=== PATIENT | male | born 1990 | race Caucasian/White ===

== ENCOUNTER 2016-07-01 23:23 | Emergency (ER) | payer OTHER ==
[~2016-07-01] VITALS: Ht 172.7 cm; Wt 80.6 kg
[~2016-07-01 23:23] MED LIST: AZITHROMYCIN500 M1 PO; CENTRUM SILVER1 EAC3 PO; EXCEDRIN MIGRA1 EAC3 PO; FLUOXETINE HCL20 MG PO; METAXALONE800 MG PO; PREDNISONE20 MG PO; PROAIR HFA8.5 GM IH; PROZAC10 MG PO
[2016-07-02 00:39] LABS: EOSINOPHIL (%) 1.7 % (0-5); EOSINOPHIL COUNT 0.1 K/uL (0-0.3); HEMATOCRIT 40.7 % (38.0-50.0); LYMPHOCYTE COUNT 1.9 K/uL (1.0-2.8); MCH 30.4 PG (29.0-34.0); MCHC 36.1 G/DL (30.0-36.0); MCV 84.1 FL (86-99); MEAN PLAT.VOLUME 9.1 uM^3 (9.0-12.4); MONOCYTE (%) 9.6 % (3-12); MONOCYTE COUNT 0.6 K/uL (0-0.8); NEUTROPHIL (%) 55.1 % (45-76); NEUTROPHIL COUNT 3.2 K/uL (1.8-6.4); PLATELET COUNT 306 K/uL (156-360); RBC DIS.WIDTH-CV 12.3 % (11.8-14.6); RBC DIS.WIDTH-SD 36.7 % (39-53); RED BLOOD COUNT 4.84 M/uL (4.00-5.50); WHITE BLOOD COUNT 5.8 K/uL (4.1-10.2)
[2016-07-02 00:47] LABS: CHLORIDE 106 mEq/L (99-109); SODIUM 142 mEq/L (136-147)
[2016-07-02 00:50] LABS: GLUCOSE 98 mg/dL (70-99)
[2016-07-02 00:51] LABS: ANION GAP 10 MEQ/L (2-14)
[2016-07-02 00:52] LABS: TOTAL BILIRUBIN 0.5 mg/dL (0.0-1.0)
[2016-07-02 00:53] LABS: ALKALINE PHOSPHATASE 45 IU/L (3-129); GFR ESTIMATE (CALCULATED) > 59 mL/min/
[2016-07-02 00:55] LABS: UREA NITROGEN (BUN) 11 mg/dL (9-23)
[2016-07-02] MEDS ORDERED: MEDROL DOSEPAK4 MG PO (01:47)
[2016-07-02 02:00] VITALS: BP 153/89
== END 2016-07-02 02:19 | disposition home or self-care (01) ==
LOC: EXP 23:23 → EME 23:23 → EXP 07-02 02:19
PROVIDERS: Physician Assistant
DX: T42.6X5A Adverse effect of other antiepileptic and sedative-hypnotic drugs, initial encounter (principal); J45.909 Unspecified asthma, uncomplicated; F17.200 Nicotine dependence, unspecified, uncomplicated
CPT/HCPCS: 80053; 80175 90; 85025; 99281; 99284; J1200; J2930; J7030

== ENCOUNTER 2017-03-19 01:59 | Emergency (ER) | payer OTHER ==
[~2017-03-19] VITALS: Ht 172.7 cm; Wt 79.6 kg
[~2017-03-19 01:59] MED LIST changes: +MEDROL DOSEPAK4 MG PO
[2017-03-19] MEDS ORDERED: ZOFRAN4 MG PO (04:15)
[2017-03-19 04:19] VITALS: BP 114/67
== END 2017-03-19 04:20 | disposition home or self-care (01) ==
LOC: EME 01:59
DX: R11.2 Nausea with vomiting, unspecified (principal); R19.7 Diarrhea, unspecified; R42 Dizziness and giddiness; T50.905A Adverse effect of unspecified drugs, medicaments and biological substances, initial encounter; J45.909 Unspecified asthma, uncomplicated; Z90.49 Acquired absence of other specified parts of digestive tract; Z72.0 Tobacco use
CPT/HCPCS: 99281; 99283

== ENCOUNTER 2017-04-07 12:35 | Emergency (ER) | payer OTHER ==
[~2017-04-07] VITALS: Ht 172.7 cm; Wt 79.3 kg
[~2017-04-07 12:35] MED LIST changes: +ZOFRAN4 MG PO
[2017-04-07] MEDS ORDERED: MEDROL DOSEPAK4 MG PO (15:07)
[2017-04-07 15:18] VITALS: BP 113/68
== END 2017-04-07 15:20 | disposition home or self-care (01) ==
LOC: EME 12:35
DX: R06.02 Shortness of breath (principal); R00.2 Palpitations; R11.0 Nausea; L29.9 Pruritus, unspecified; T45.2X5A Adverse effect of vitamins, initial encounter; J45.909 Unspecified asthma, uncomplicated; F90.9 Attention-deficit hyperactivity disorder, unspecified type; F31.9 Bipolar disorder, unspecified; F32.9 Major depressive disorder, single episode, unspecified; K21.9 Gastro-esophageal reflux disease without esophagitis; F41.9 Anxiety disorder, unspecified; Z72.0 Tobacco use
CPT/HCPCS: 99281; 99284

== ENCOUNTER 2017-04-09 06:03 | Emergency (ER) | payer OTHER ==
[~2017-04-09] VITALS: Ht 172.7 cm; Wt 79.2 kg
[2017-04-09 06:51] LABS: HEMATOCRIT 39.9 % (38.0-50.0); MCH 30.9 PG (29.0-34.0); MCHC 36.3 G/DL (30.0-36.0); MCV 84.9 FL (86-99); MEAN PLAT.VOLUME 8.8 uM^3 (9.0-12.4); PLATELET COUNT 259 K/uL (156-360); RBC DIS.WIDTH-CV 11.7 % (11.8-14.6); RBC DIS.WIDTH-SD 35.8 % (39-53); WHITE BLOOD COUNT 6.4 K/uL (4.1-10.2)
[2017-04-09 06:59] LABS: CHLORIDE 103 mEq/L (99-109)
[2017-04-09 07:00] LABS: POTASSIUM 3.6 mEq/L (3.7-5.4); SODIUM 137 mEq/L (136-147)
[2017-04-09 07:02] LABS: GLUCOSE 95 mg/dL (70-99)
[2017-04-09 07:03] LABS: ANION GAP 7 MEQ/L (2-14)
[2017-04-09 07:05] LABS: ALKALINE PHOSPHATASE 46 IU/L (3-129); SERUM ETHYL ALCOHOL < 10 mg/dL
[2017-04-09 07:06] LABS: GFR ESTIMATE (CALCULATED) > 59 mL/min/
[2017-04-09 07:07] LABS: UREA NITROGEN (BUN) 10 mg/dL (9-23)
[2017-04-09 07:09] LABS: CREATINE KINASE 62 IU/L (1-294); TOTAL CK 62 IU/L (1-294)
[2017-04-09 07:14] LABS: CK-MB 0.6 ng/mL (0.0-4.9)
[2017-04-09 07:51] LABS: COCAINE NEGATIVE (150 ng/mL); PHENCYCLIDINE NEGATIVE (25 ng/mL); THC CANNABINOIDS NEGATIVE (50 ng/mL)
[2017-04-09 07:52] LABS: AMPHETAMINE NEGATIVE (500 ng/mL); BARBITURATES NEGATIVE (200 ng/mL); BENZODIAZEPINES NEGATIVE (150 ng/mL); INTERNAL CONTROLS VALID? YES; METHADONE NEGATIVE (200 ng/mL); METHAMPHETAMINE NEGATIVE (500 ng/mL); OPIATES (MORPHINE) NEGATIVE (100 ng/mL); OXYCODONE NEGATIVE (100 ng/mL); PROPOXYPHENE NEGATIVE (300 ng/mL); TRICYCLIC ANTIDEPRESSANTS NEGATIVE (300 ng/mL)
[2017-04-09 08:38] VITALS: BP 122/75
== END 2017-04-09 08:45 | disposition home or self-care (01) ==
LOC: EME 06:03
PROVIDERS: Emergency Medicine
DX: R44.3 Hallucinations, unspecified (principal); L29.9 Pruritus, unspecified; R11.0 Nausea; R68.83 Chills (without fever); F31.9 Bipolar disorder, unspecified; J45.909 Unspecified asthma, uncomplicated; K21.9 Gastro-esophageal reflux disease without esophagitis; F90.9 Attention-deficit hyperactivity disorder, unspecified type; Z79.52 Long term (current) use of systemic steroids; Z90.49 Acquired absence of other specified parts of digestive tract; Z72.0 Tobacco use; Z91.041 Radiographic dye allergy status
CPT/HCPCS: 80053; 82550; 82553; 85027; 99281; 99284; G0480

== ENCOUNTER 2017-06-25 14:21 | Emergency (ER) | payer OTHER ==
[~2017-06-25] VITALS: Ht 172.7 cm; Wt 74.4 kg
[2017-06-25 16:13] LABS: HEMATOCRIT 42.1 % (38.0-50.0); HEMOGLOBIN 15.1 G/DL (12.5-16.6); MCH 30.8 PG (29.0-34.0); MCHC 35.9 G/DL (30.0-36.0); MCV 85.7 FL (86-99); PLATELET COUNT 268 K/uL (156-360); RBC DIS.WIDTH-CV 11.2 % (11.8-14.6); RBC DIS.WIDTH-SD 34.6 % (39-53); RED BLOOD COUNT 4.91 M/uL (4.00-5.50); WHITE BLOOD COUNT 4.1 K/uL (4.1-10.2)
[2017-06-25 16:29] LABS: CHLORIDE 104 mEq/L (99-109); POTASSIUM 4.2 mEq/L (3.7-5.4); SODIUM 141 mEq/L (136-147)
[2017-06-25 16:30] LABS: GLUCOSE 86 mg/dL (70-99)
[2017-06-25 16:34] LABS: GFR ESTIMATE (CALCULATED) > 59 mL/min/ (58.99-99999)
[2017-06-25 16:35] LABS: UREA NITROGEN (BUN) 10 mg/dL (9-23)
[2017-06-25 16:38] LABS: TROP-I INTERPRETATION NEGATIVE; TROPONIN-I < 0.01 ng/mL (0.0-0.30)
[2017-06-25] MEDS ORDERED: CARAFATE1 GM PO (18:08)
[2017-06-25 18:25] VITALS: BP 112/74
== END 2017-06-25 18:26 | disposition home or self-care (01) ==
LOC: EME 14:21
DX: R07.89 Other chest pain (principal); K29.70 Gastritis, unspecified, without bleeding; R06.02 Shortness of breath; J45.909 Unspecified asthma, uncomplicated; Z90.49 Acquired absence of other specified parts of digestive tract; Z72.0 Tobacco use
CPT/HCPCS: 71046; 80048; 84484; 85027; 93005; 99281; 99284

== ENCOUNTER 2017-07-01 21:59 | Emergency (ER) | payer OTHER ==
[~2017-07-01] VITALS: Ht 172.7 cm; Wt 64.7 kg
[~2017-07-01 21:59] MED LIST changes: +CARAFATE1 GM PO
[2017-07-01 22:39] LABS: HEMATOCRIT 40.9 % (38.0-50.0); HEMOGLOBIN 14.6 G/DL (12.5-16.6); MCH 30.5 PG (29.0-34.0); MCHC 35.7 G/DL (30.0-36.0); MCV 85.4 FL (86-99); PLATELET COUNT 251 K/uL (156-360); RBC DIS.WIDTH-CV 11.5 % (11.8-14.6); RBC DIS.WIDTH-SD 35.2 % (39-53); RED BLOOD COUNT 4.79 M/uL (4.00-5.50); WHITE BLOOD COUNT 5.6 K/uL (4.1-10.2)
[2017-07-01 22:49] LABS: CHLORIDE 102 mEq/L (99-109); POTASSIUM 3.7 mEq/L (3.7-5.4); SODIUM 139 mEq/L (136-147)
[2017-07-01 22:51] LABS: GLUCOSE 113 mg/dL (70-99)
[2017-07-01 22:55] LABS: GFR ESTIMATE (CALCULATED) > 59 mL/min/ (58.99-99999)
[2017-07-01 22:56] LABS: UREA NITROGEN (BUN) 11 mg/dL (9-23)
[2017-07-01 23:02] LABS: TROP-I INTERPRETATION NEGATIVE; TROPONIN-I < 0.01 ng/mL (0.0-0.30)
[2017-07-02 01:16] LABS: TROP-I INTERPRETATION NEGATIVE; TROPONIN-I < 0.01 ng/mL (0.0-0.30)
[2017-07-02 03:16] VITALS: BP 106/70
== END 2017-07-02 03:17 | disposition home or self-care (01) ==
LOC: EME 21:59
PROVIDERS: Emergency Medicine
DX: R07.89 Other chest pain (principal); F90.9 Attention-deficit hyperactivity disorder, unspecified type; K21.9 Gastro-esophageal reflux disease without esophagitis; F32.9 Major depressive disorder, single episode, unspecified; J45.909 Unspecified asthma, uncomplicated; Z72.0 Tobacco use; Z91.041 Radiographic dye allergy status
CPT/HCPCS: 71046; 80048; 84484; 85027; 93005; 99281; 99283

== ENCOUNTER 2017-07-19 15:14 | Emergency (ER) | payer OTHER ==
[~2017-07-19] VITALS: Ht 172.7 cm; Wt 74.2 kg
[2017-07-19] MEDS ORDERED: PRILOSEC20 MG PO (16:04)
[2017-07-19 16:20] LABS: APPEARANCE SL.HAZY ((CLEAR)); BILIRUBIN NEGATIVE; BLOOD NEGATIVE; COLOR YELLOW ((YELLOW)); GLUCOSE (STRIP) NEGATIVE; KETONES NEGATIVE; LEUKOCYTES NEGATIVE; NITRITE NEGATIVE; PROTEIN (STRIP) 30; UROBILINOGEN 0.2 MG/DL (0.2-1.0)
[2017-07-19 16:27] LABS: BACTERIA RARE /HPF; EPITHELIAL CELLS RARE /HPF; MUCUS TRACE /LPF; RED BLOOD CELLS 0-5 /HPF (0-5); WHITE BLOOD CELLS 0-5 /HPF (0-5)
[2017-07-19 16:50] LABS: AMPHETAMINE NEGATIVE (500 ng/mL); BARBITURATES NEGATIVE (200 ng/mL); BENZODIAZEPINES NEGATIVE (150 ng/mL); BUPRENORPHINE NEGATIVE (10 ng/mL); COCAINE NEGATIVE (150 ng/mL); METHADONE NEGATIVE (200 ng/mL); METHAMPHETAMINE NEGATIVE (500 ng/mL); OPIATES (MORPHINE) NEGATIVE (100 ng/mL); OXYCODONE NEGATIVE (100 ng/mL); PHENCYCLIDINE NEGATIVE (25 ng/mL); PROPOXYPHENE NEGATIVE (300 ng/mL); THC CANNABINOIDS NEGATIVE (50 ng/mL); TRICYCLIC ANTIDEPRESSANTS NEGATIVE (300 ng/mL)
[2017-07-19 16:57] LABS: HEMATOCRIT 42.2 % (38.0-50.0); HEMOGLOBIN 15.3 G/DL (12.5-16.6); MCH 30.9 PG (29.0-34.0); MCHC 36.3 G/DL (30.0-36.0); MCV 85.3 FL (86-99); PLATELET COUNT 250 K/uL (156-360); RBC DIS.WIDTH-CV 11.6 % (11.8-14.6); RBC DIS.WIDTH-SD 35.2 % (39-53); RED BLOOD COUNT 4.95 M/uL (4.00-5.50); WHITE BLOOD COUNT 5.4 K/uL (4.1-10.2)
[2017-07-19 17:05] LABS: ALBUMIN 4.7 g/dL (3.2-4.8); CHLORIDE 103 mEq/L (99-109); POTASSIUM 4.2 mEq/L (3.7-5.4); SODIUM 139 mEq/L (136-147)
[2017-07-19 17:08] LABS: GLUCOSE 91 mg/dL (70-99); TOTAL PROTEIN 7.3 g/dL (6.4-8.3)
[2017-07-19 17:10] LABS: TOTAL BILIRUBIN 1.3 mg/dL (0.0-1.0)
[2017-07-19 17:11] LABS: ALKALINE PHOSPHATASE 47 IU/L (3-129); CREATININE 0.9 mg/dL (0.6-1.3); GFR ESTIMATE (CALCULATED) > 59 mL/min/ (58.99-99999)
[2017-07-19 17:12] LABS: UREA NITROGEN (BUN) 9 mg/dL (9-23)
[2017-07-19 17:13] LABS: AST (GOT) 22 IU/L (2-34)
[2017-07-19 17:14] LABS: ALT (GPT) 33 IU/L (3-49)
[2017-07-19 17:15] LABS: LIPASE 14 U/L (1.0-51.0)
[2017-07-19] MEDS ORDERED: ATARAX,VISTARIL50 MG PO (18:22)
[2017-07-19] MEDS ORDERED: ZOFRAN ODT4 MG PO (18:22)
[2017-07-19] MEDS ORDERED: BENTYL10 MG PO (18:22)
[2017-07-19 18:45] VITALS: BP 110/65
== END 2017-07-19 18:47 | disposition home or self-care (01) ==
LOC: EME 15:14
PROVIDERS: Nurse Practitioner Family
DX: R10.9 Unspecified abdominal pain (principal); F33.1 Major depressive disorder, recurrent, moderate; R45.851 Suicidal ideations; F41.9 Anxiety disorder, unspecified; K21.9 Gastro-esophageal reflux disease without esophagitis; J45.909 Unspecified asthma, uncomplicated; F31.9 Bipolar disorder, unspecified; F90.9 Attention-deficit hyperactivity disorder, unspecified type; Z90.49 Acquired absence of other specified parts of digestive tract; Z87.891 Personal history of nicotine dependence; Z91.041 Radiographic dye allergy status
CPT/HCPCS: 74177; 80053; 81003; 83690; 85027; 90839; 99281; 99285; J1885; J2405; J7030